=== PATIENT | male | born 1975 | race Caucasian/White ===

== ENCOUNTER 2016-08-07 10:31 | Emergency (ER) | payer OTHER ==
[~2016-08-07] VITALS: Ht 195.6 cm; Wt 122.5 kg
[2016-08-07 10:39] VITALS: BP 154/101
[2016-08-07] MEDS ORDERED: DIPHTH,PERTUSS(ACELL),TET TOX 0.5 ML DISP.SYRIN. VAX IM ONE (11:30)
[2016-08-07] MEDS ORDERED: LIDOCAINE 1% / SOD BICARB 8.4% 20 ML VIAL. IJ ONE (11:30)
[2016-08-07] MEDS ORDERED: HYDR-2666 PO (12:00)
[2016-08-07] MEDS ORDERED: SULF1TAB24 PO (12:00)
--- NOTE | 2016-08-07 12:01 | PHYS DOC ---
Past Medical History Past Medical History: No Pertinent History Past Surgical History: No Surgical History Additional Information: chewing tobacco Alcohol Use: None Drug Use: None Adult General Chief Complaint Chief Complaint: Neck Pain HPI HPI 41-year-old male presenting to the emergency department today with swelling in the right neck with redness. The swelling is been present for a long time however has gotten worse over the past month. It is become more large and red on top. He describes pain in his neck that is sharp moderate nonradiating and without alleviating factors. Review of systems is negative for chest pain shortness of breath nausea vomiting fevers chills. All other review of systems is negative unless otherwise noted in history of present illness. Review of Systems Review of Systems SEE ABOVE. Current Medications Current Medications Current Medications Medications (Trade) Dose Ordered Sig/Rosa Start Time Stop Time Status Last Admin Dose Admin Diphtheria/ Tetanus/Acell Pertussis (Boostrix) 0.5 ml ONCE ONCE 08/07/16 11:30 08/07/16 11:46 DC Lidocaine/Sodium Bicarbonate (Buffered Lidocaine 1%) 20 ml 1X ONCE 08/07/16 11:30 08/07/16 11:47 DC Allergies Allergies Allergies Coded Allergies Type Severity Reaction Last Updated Verified No Known Drug Allergies 01/07/16 No Physical Exam Physical Exam Constitutional: Well developed, well nourished, no acute distress, non-toxic appearance. HENT: Normocephalic, atraumatic, bilateral external ears normal, oropharynx moist, no oral exudates, nose normal. Eyes: PERRLA, EOMI, conjunctiva normal, no discharge. Neck: Normal range of motion, supple, no stridor. Patient's right neck has a fluctuant mass approximately 2 cm in diameter. There is an overlying cellulitis. Ultrasound of the structure shows complex fluid collection. Cardiovascular:Heart rate regular rhythm, no murmur Lungs & Thorax: Bilateral breath sounds clear to auscultation [] Abdomen: Bowel sounds normal, soft, no tenderness, no masses, no pulsatile masses. Skin: Warm, dry, no erythema, no rash. [] Back: No tenderness, no CVA tenderness. Extremities: No tenderness, no cyanosis, no clubbing, ROM intact, no edema. Neurologic: Alert and oriented X 3, normal motor function, normal sensory function, no focal deficits noted. Psychologic: Affect normal, judgement normal, mood normal. [] Current Patient Data Vital Signs Vital Signs Date Time Temp Pulse Resp B/P Pulse Ox O2 Delivery O2 Flow Rate FiO2 08/07/16 10:39 97.7 100 16 97 Room Air 97.7 EKG EKG [] Radiology/Procedures Radiology/Procedures [] Course & Med Decision Making Course & Med Decision Making Pertinent Labs and Imaging studies reviewed. (See chart for details) [] 41-year-old male presenting the emergency department with swelling and pain over his right neck. Pertinent physical exam findings afebrile in the emergency department today. Fluctuant mass in the right neck, on ultrasound there is a complex fluid collection or superficial away from the great vessels structures. The structure was numbed up with 1% lidocaine and extremely superficial incision and drainage was performed which was unable to drain any fluid. Minimal blunt dissection was used. The patient was otherwise well-appearing. I ordered oral antibiotics for the patient to follow-up with his primary care physician over the next 2-3 days. Dragon Disclaimer Dragon Disclaimer This electronic medical record was generated, in whole or in part, using a voice recognition dictation system. Departure Departure Impression: Primary Impression: Neck abscess Disposition: 01 HOME, SELF-CARE Condition: STABLE Referrals: NO PCP (PCP) JOE PATRICIA MD Patient Instructions: Abscess, Abscess, [id number] Additional Instructions: Thank you for allowing us to participate in your care today. Followup with your primary care physician in 3 days if your symptoms do not improve. If you do not have a primary care provider you can ask for a list of our primary care providers. Return to the emergency department you have any new or concerning findings. This should be evaluated by the primary care physician and any necessary consulting services for continued management within a few days after discharge. Return to emergency room if you have any new or concerning symptoms including but not limited to fever, chills, nausea, vomiting, intractable pain, any new rashes, chest pain, shortness of air, uncontrolled bleeding, difficulty breathing, and/or vision loss. You may have been prescribed medication that can change in your level of thinking and ability to operate machinery. These medications include hydrocodone and Ativan. Also, Benadryl has been known to do this as well. Be sure to check with your pharmacist and ask if the medications you've prescribed can affect your level of consciousness. I recommend not operating heavy machinery or driving while on medication such as these. Scripts Sulfamethoxazole/Trimethoprim (Bactrim Ds Tablet)1 Each Tablet1 Tab PO BID #20 TAB Prov:ARIANA SAUCEDA MD 08/07/16 Hydrocodone Bit/Acetaminophen (Hydrocodone-Apap 5-325 )1 Each Tablet1 Tab PO PRN Q6HRS PRN PAIN #15 TAB Be careful as this medication may cause you to be drowsy or tired. Do not drive on this medication. Prov:ARIANA SAUCEDA MD 08/07/16 Incision and Drainage Indication: abscess Procedure: The patient was positioned appropriately. Local anesthesia was buffered 1% lidocaine. An incision was then made over the apex of the lesion and no material was expressed. The patients tetanus status updated as needed. The patient tolerated the procedure well. Complications: none. ARIANA SAUCEDA MD Aug 07, 2016 12:01
== END 2016-08-07 12:22 | disposition home or self-care (01) ==
LOC: ER 10:31
DX: L02.11 Cutaneous abscess of neck (principal); F17.220 Nicotine dependence, chewing tobacco, uncomplicated
CPT/HCPCS: 10060; 90471; 90715; 99284-25

== ENCOUNTER 2016-08-09 11:02 | Emergency (ER) | payer OTHER ==
[~2016-08-09] VITALS: Ht 195.6 cm; Wt 122.5 kg
[~2016-08-09 11:02] MED LIST: HYDR-2666 PO; SULF1TAB24 PO
[2016-08-09 12:53] LABS: BASO # 0.1 x10^3/uL (0.0-0.2); BASO % 1 % (0-3); EOS % 1 % (0-3); HEMATOCRIT 44.5 % (39.0-53.0); HEMOGLOBIN 14.9 g/dL (13.0-17.5); LYMPH # 2.3 x10^3/uL (1.0-4.8); LYMPH % 24 % (24-48); MEAN CORPUSCULAR HEMOGLOBIN 30 pg (25-35); MEAN CORPUSCULAR HGB CONC 33 g/dL (31-37); MEAN CORPUSCULAR VOLUME 89 fL (79-100); MONO % 5 % (0-9); NEUT % 69 % (31-73); PLATELET COUNT 209 x10^3/uL (140-400); RED BLOOD COUNT 5.04 x10^6/uL (4.30-5.70); WHITE BLOOD COUNT 9.6 x10^3/uL (4.0-11.0)
[2016-08-09 13:06] LABS: CREATININE 1.1 mg/dL (0.7-1.3); GFR 74.5
[2016-08-09 13:12] LABS: ALBUMIN 3.4 g/dL (3.4-5.0); ALBUMIN/GLOBULIN RATIO 0.8 (1.0-1.7); TOTAL BILIRUBIN 0.4 mg/dL (0.2-1.0); TOTAL PROTEIN 7.6 g/dL (6.4-8.2)
[2016-08-09] MEDS ORDERED: IOHEXOL 300 MG/ML 75 ML VIAL IV ONE (13:30)
[2016-08-09] MEDS ORDERED: CONTRAST GIVEN MC PRN (13:30)
--- NOTE | 2016-08-09 14:27 | PHYS DOC ---
Past Medical History Past Medical History: No Pertinent History Past Surgical History: No Surgical History Alcohol Use: None Drug Use: None Adult General Chief Complaint Chief Complaint: OTHER COMPLAINTS HPI HPI Patient is a 41 year old male who presents with right neck abscess for 1 week. He states that he has had a small lump in the area for over 10 years. It just became larger with redness over the last week. He was seen in this emergency department 2 days ago for the same complaint. Bedside ultrasound showed a 2 cm complex fluid pocket. Attempt at superficial incision and drainage was unsuccessful in expressing any purulent material. The patient was discharged home with prescriptions for Bactrim and [place]. He has taken 4 doses of the Bactrim. He states that the abscess is larger today than it was 2 days ago when he was initially seen. He denies any fever or subsequent drainage from the wound. He states that he has pain when turning his head and occasionally feels lightheaded with turning his head as well. Review of Systems Review of Systems Constitutional: Denies fever or chills. [] Musculoskeletal: Denies back pain or joint pain. Reports right-sided neck pain. Integument: Denies rash or skin lesions. Reports right-sided neck abscess. Neurologic: Denies headache, focal weakness or sensory changes. Reports feeling lightheaded. Current Medications Current Medications Current Medications Medications (Trade) Dose Ordered Sig/Rosa Start Time Stop Time Status Last Admin Dose Admin Info (Do NOT chart on this entry -- for MONITORING) 1 each PRN DAILY PRN 08/09/16 13:30 08/09/16 15:53 DC Iohexol (Omnipaque 300 Mg/ml) 75 ml 1X ONCE 08/09/16 13:30 08/09/16 13:31 DC 08/09/16 13:30 75 ML Allergies Allergies Allergies Coded Allergies Type Severity Reaction Last Updated Verified No Known Drug Allergies 01/07/16 No Physical Exam Physical Exam Constitutional: Well developed, well nourished, no acute distress, non-toxic appearance. [] HENT: Normocephalic, atraumatic, oropharynx moist. [] Eyes: PERRLA, EOMI, conjunctiva normal, no discharge. [] Neck: Normal range of motion, right anterior tenderness, supple, no stridor. [] Skin: Warm, dry, no rash. There is a 4 x 4 centimeter indurated abscess on the right anterior neck with minimal surrounding cellulitis. Neurologic: Alert and oriented X 3, normal motor function, normal sensory function, no focal deficits noted. [] Psychologic: Affect normal, judgement normal, mood normal. [] Current Patient Data Vital Signs Vital Signs Date Time Temp Pulse Resp B/P Pulse Ox O2 Delivery O2 Flow Rate FiO2 08/09/16 15:39 92 18 154/94 96 Room Air 08/09/16 11:31 98.1 98.1 Lab Values Laboratory Tests Test 08/09/16 12:45 White Blood Count 9.6x10^3/uL (4.0-11.0) Red Blood Count 5.04x10^6/uL (4.30-5.70) Hemoglobin 14.9g/dL (13.0-17.5) Hematocrit 44.5% (39.0-53.0) Mean Corpuscular Volume 89fL (79-100) Mean Corpuscular Hemoglobin 30pg (25-35) Mean Corpuscular Hemoglobin Concent 33g/dL (31-37) Red Cell Distribution Width 13.0% (11.5-14.5) Platelet Count 209x10^3/uL (140-400) Neutrophils (%) (Auto) 69% (31-73) Lymphocytes (%) (Auto) 24% (24-48) Monocytes (%) (Auto) 5% (0-9) Eosinophils (%) (Auto) 1% (0-3) Basophils (%) (Auto) 1% (0-3) Neutrophils # (Auto) 6.6x10^3uL (1.8-7.7) Lymphocytes # (Auto) 2.3x10^3/uL (1.0-4.8) Monocytes # (Auto) 0.5x10^3/uL (0.0-1.1) Eosinophils # (Auto) 0.1x10^3/uL (0.0-0.7) Basophils # (Auto) 0.1x10^3/uL (0.0-0.2) Sodium Level 140mmol/L (136-145) Potassium Level 4.0mmol/L (3.5-5.1) Chloride Level 102mmol/L (98-107) Carbon Dioxide Level 30mmol/L (21-32) Anion Gap 8 (6-14) Blood Urea Nitrogen 11mg/dL (8-26) Creatinine 1.1mg/dL (0.7-1.3) Estimated GFR (Cockcroft-Gault) 74.5 BUN/Creatinine Ratio 10 (6-20) Glucose Level 105mg/dL (70-99) H Calcium Level 9.0mg/dL (8.5-10.1) Total Bilirubin 0.4mg/dL (0.2-1.0) Aspartate Amino Transferase (AST) 14U/L (15-37) L Alanine Aminotransferase (ALT) 29U/L (16-63) Alkaline Phosphatase 99U/L (46-116) Total Protein 7.6g/dL (6.4-8.2) Albumin 3.4g/dL (3.4-5.0) Albumin/Globulin Ratio 0.8 (1.0-1.7) L Laboratory Tests 08/09/16 12:45 Laboratory Tests 08/09/16 12:45 EKG EKG [] Radiology/Procedures Radiology/Procedures REASON: rt sided abscess PROCEDURE: SOFT TISSUE NECK W/CONTRAST CT of the neck with contrast, 08/09/2016: History: Worsening right-sided abscess Multidetector CT imaging was performed following an IV bolus injection of iodinated contrast material. A BB was placed on the skin surface over the area of palpable concern on the right. There is a small subcutaneous low density lesion at this level compatible with a fluid collection such as a small abscess. The fluid component measures only approximately 16 x 14 x 18 mm. Its margins are mildly irregular with adjacent streaky subcutaneous edema. There is mild overlying skin thickening. This lesion lies along the lateral aspect of the right sternocleidomastoid muscle just inferior to the level of the angle of the mandible. No significant deep extension is seen. The laryngeal region is unremarkable. No airway narrowing is evident. The thyroid gland is unremarkable. The parotid and submandibular glands show no abnormality. Several small cervical lymph nodes are visible without evidence of pathologic enlargement. There are small foci of mucosal thickening in both maxillary sinus probably representing retention cysts or polyps. No free fluid is evident in the paranasal sinuses. IMPRESSION: Small subcutaneous fluid collection in the right lower neck compatible with the clinical impression of an abscess. There is mild adjacent inflammation without evidence of deep extension. Course & Med Decision Making Course & Med Decision Making Pertinent Labs and Imaging studies reviewed. (See chart for details) Patient presents with increased in size of right neck abscess after previous I& D and outpatient antibiotic treatment. The abscess remains indurated and is in a location that complicates simple I&D due to underlying vascular structures. Dr. Marino with general surgery was consulted. He recommends CT of the neck with contrast to better visualize the size of the abscess and involvement of surrounding structures. He states that an ENT doctor would be the most appropriate choice for drainage of the wound. CT of the neck was obtained. It confirms soft tissue abscess of the superficial neck without involvement of the deeper structures. There is no leukocytosis. The patient was seen and examined by Dr. Garcia as well. He agrees that the abscess is indurated and not appropriate for I&D at this time. He recommends changing the antibiotic from Bactrim to Clindamycin. The patient is instructed to discontinue Bactrim and begin clindamycin today. He is instructed to follow up in 2-3 days for wound recheck. He is to return to the emergency department if he has interval worsening of the wound. He is advised that we do not have ENT coverage at this hospital, but we would be happy to see him here for wound recheck. He verbalizes understanding and agrees with plan. Pt was seen and examined with ADE Henderson. Agree with assessment and plan as documented. -MD Promise Valdez Disclaimer Promise Disclaimer This electronic medical record was generated, in whole or in part, using a voice recognition dictation system. Departure Departure Impression: Primary Impression: Neck abscess Additional Impression: Encounter for wound re-check Disposition: 01 HOME, SELF-CARE Condition: STABLE Referrals: NO PCP (PCP) Patient Instructions: Abscess, [id number] Additional Instructions: Your CT scan confirmed an abscess of the neck without involvement of the deeper structures in the neck. Your labs were all normal. Please stop taking the previously prescribed antibiotic. Begin taking the newly prescribed antibiotic today. Please complete all of the prescribed antibiotic, even if you are feeling better. Please apply warm compresses to the wound to encourage drainage. Please follow-up for wound recheck in 2-3 days. Return to the emergency department if you have worsening of the wound, if the wound is not improving with treatment, or if you have other new or concerning symptoms. Scripts Clindamycin Hcl 150 Mg Capsule2 Cap PO QID 10 Days Prov:KRISTA SANTIAGO 08/09/16 Problem Qualifiers KRISTA SANTIAGO Aug 09, 2016 14:27 Winnie GARCIA MD Aug 09, 2016 17:41
--- NOTE | 2016-08-09 14:50 | RAD ---
CT of the neck with contrast, 08/09/2016: History: Worsening right-sided abscess Multidetector CT imaging was performed following an IV bolus injection of iodinated contrast material. A BB was placed on the skin surface over the area of palpable concern on the right. There is a small subcutaneous low density lesion at this level compatible with a fluid collection such as a small abscess. The fluid component measures only approximately 16 x 14 x 18 mm. Its margins are mildly irregular with adjacent streaky subcutaneous edema. There is mild overlying skin thickening. This lesion lies along the lateral aspect of the right sternocleidomastoid muscle just inferior to the level of the angle of the mandible. No significant deep extension is seen. The laryngeal region is unremarkable. No airway narrowing is evident. The thyroid gland is unremarkable. The parotid and submandibular glands show no abnormality. Several small cervical lymph nodes are visible without evidence of pathologic enlargement. There are small foci of mucosal thickening in both maxillary sinus probably representing retention cysts or polyps. No free fluid is evident in the paranasal sinuses. IMPRESSION: Small subcutaneous fluid collection in the right lower neck compatible with the clinical impression of an abscess. There is mild adjacent inflammation without evidence of deep extension. PQRS Compliance Statement: One or more of the following individualized dose reduction techniques were utilized for this examination: 1. Automated exposure control 2. Adjustment of the mA and/or kV according to patient size 3. Use of iterative reconstruction technique
[2016-08-09] MEDS ORDERED: CLIN-44 PO (15:31)
[2016-08-09 15:39] VITALS: BP 154/94
== END 2016-08-09 15:40 | disposition home or self-care (01) ==
LOC: ER 11:02
DX: L02.11 Cutaneous abscess of neck (principal)
CPT/HCPCS: 36415; 70491; 80053; 85027; 99285; Q9967